=== PATIENT | female | born 1975 | race Caucasian/White ===

== ENCOUNTER → 2023-04-07 16:00 | Outpatient (BNVA) | payer OTHER, MEDICAID, SELFPAY | PROVIDERS: Visit Provider Obstetrics & Gynecology | DX: Z01.419 Encounter for gynecological examination (general) (routine) without abnormal findings (principal); N83.209 Unspecified ovarian cyst, unspecified side | CPT/HCPCS: 87624 ==

== ENCOUNTER 2023-06-09 10:50 | Outpatient (CLI) | payer OTHER, MEDICAID, SELFPAY ==
--- NOTE | 2023-06-09 11:00 | US_ITS ---
WS: [id number] US pelv w/transvag [id number] HISTORY: N83.209 - Unspecified ovarian cyst, unspecified side COMPARISON: None available. Uterus: 9.0 cm x 5.2 cm x 5.0 cm. Normal size anteverted uterus. No fibroid or mass. Endometrium: 0.7 cm. Poorly visualized but heterogeneous endometrium. Junctional zone is not visualiz ed. Right ovary: 2.4 cm x 1.5 cm x 2.1 cm. Normal size and vascularity, no cystic or solid masses. Left ovary: 3.8 cm x 2.9 cm x 3.0 cm. Normal size ovary. Dominant follicle measures 2.9 x 1.8 x 2.4 c m. [place] are slightly irregular suggesting pending collapse. Normal vascularity. No free fluid in the cul-de-sac. IMPRESSION: 1. Poorly visualized endometrium. Loss of the normal junctional zone. Consider adenomyosis. As the en dometrium is poorly visualized consider follow-up transvaginal imaging in 6 to 8 weeks. 2. Normal size anteverted uterus.
== END 2023-06-09 10:51 | disposition home or self-care (01) ==
LOC: RAD 10:56
PROVIDERS: Visit Provider Obstetrics & Gynecology
DX: N83.209 Unspecified ovarian cyst, unspecified side (principal); N85.4 Malposition of uterus
CPT/HCPCS: 76830; 76856